=== PATIENT | female | born 1965 | race Caucasian/White ===

== ENCOUNTER → 2017-04-15 | Outpatient (REF) ==
[2017-04-15 10:12] LABS: THYROID STIMULATING HORMONE 2.81 uIU/mL (0.465-4.680)
== END ==
LOC: ZLAB.WCH 09:24
PROVIDERS: Nurse Practitioner Family
DX: Z01.89 Encounter for other specified special examinations (principal)

== ENCOUNTER 2019-04-03 13:23 | Outpatient (CLI) | payer BC ==
[~2019-04-03] VITALS: Ht 167.6 cm; Wt 62.0 kg
[2019-04-03] VITALS (8 sets, daily range): BP systolic 93–126; BP diastolic 66–89; PULSE 62–74
[~2019-04-03 13:23] MED LIST: DOXYCYCLINE HY100 MG PO; EFFEXOR 3737.5 MG/TA PO; MASON NATURAL2000 IU PO; MULTI VITAMINS1 TAB PO; SINGULAIR 110 MG/TAB PO; ZESTORETIC 12.51 TAB PO
[2019-04-03 15:26] LABS: CSF APPEARANCE CLEAR; CSF COLOR COLORLESS; CSF MONONUCLEAR 50 % (70-100); CSF POLYMORPHONUCLEAR 50 % (0-6); CSF RBC 1 /mm3 (0-0)
--- NOTE | 2019-04-03 15:54 | NUR ---
Discharge instructions given to pt.pt verbalizes understanding.
[2019-04-03 16:01] LABS: GLUCOSE,CSF 50 mg/dL (40-70); TOTAL PROTEIN,CSF 45 mg/dL (15-45)
--- NOTE | 2019-04-03 16:15 | NUR ---
Pt escorted out by this nurse.
== END 2019-04-03 16:16 | disposition home or self-care (01) ==
LOC: COL.RAD 13:23
PROVIDERS: Psychiatry & Neurology Neurology
DX: G37.9 Demyelinating disease of central nervous system, unspecified (principal)